=== PATIENT | male | born 1990 | race Caucasian/White ===

== ENCOUNTER 2018-12-30 21:00 | Emergency (ER) | payer OTHER ==
[~2018-12-30] VITALS: Ht 177.8 cm; Wt 63.5 kg
[2018-12-30 22:49] LABS: ABSOLUTE BASOPHILS 0.1 thou/uL (0.0-0.2); ABSOLUTE EOSINOPHILS 0.1 thou/uL (0.0-0.7); ABSOLUTE LYMPHOCYTES 2.1 thou/uL (0.8-5.3); ABSOLUTE MONOCYTES 0.8 thou/uL (0.0-1.2); ABSOLUTE NEUTROPHILS 3.1 thou/uL (1.6-8.1); HEMATOCRIT 47.6 % (42.0-52.0); HEMOGLOBIN 15.9 gm/dL (14.0-18.0); LYMPHOCYTES 34.2 %; MCH 28.4 pg (26.0-34.0); MCHC 33.5 g/dL (28.0-37.0); MCV 84.9 fL (80.0-100.0); MONOCYTES 12.4 %; MPV 8.5 fl. (7.2-11.1); NUCLEATED RBCS 0 /100WBC; PLATELET COUNT* 249 thou/uL (150-400); POLYS 50.4 %; RDW-CV 13.5 % (10.5-14.5); WBC 6.1 thou/uL (4.0-11.0)
[2018-12-30 23:00] LABS: CALCIUM 9.7 mg/dL (8.5-10.1); POTASSIUM 3.8 mmol/L (3.5-5.1)
[2018-12-30 23:07] LABS: ALBUMIN 4.3 g/dL (3.4-5.0); TOTAL BILIRUBIN 1.5 mg/dL (<0.1-1.0); TOTAL PROTEIN 7.5 g/dL (6.4-8.2)
[2018-12-31] MEDS ORDERED: BENTYL 20 MG TA20 M1 PO (00:12)
[2018-12-31] MEDS ORDERED: ZOFRAN4 MG PO (00:12)
[2018-12-31 00:23] LABS: URINE BILIRUBIN NEGATIVE (Negative); URINE BLOOD NEGATIVE (Negative); URINE CLARITY CLEAR; URINE COLOR YELLOW; URINE GLUCOSE-RANDOM NEGATIVE (Negative); URINE KETONES NEGATIVE (Negative); URINE LEUKOCYTES-REFLEX NEGATIVE (Negative); URINE NITRITE-REFLEX NEGATIVE (Negative); URINE PROTEIN NEGATIVE (Negative); URINE UROBILINOGEN 0.2 E.U./dl (0.2-1.0)
[2018-12-31 01:36] VITALS: BP 99/61
== END 2018-12-31 01:36 | disposition home or self-care (01) ==
LOC: M.ERS 21:00
PROVIDERS: Nurse Practitioner Family
DX: K52.9 Noninfective gastroenteritis and colitis, unspecified (principal); Z91.030 Bee allergy status

== ENCOUNTER → 2019-07-19 | Outpatient (CLI) | payer OTHER ==
[~2019-07-19] MED LIST: BENTYL 20 MG TA20 M1 PO; FLEXERIL PO; ULTRAM 50MG TAB50 MG PO; ZOFRAN4 MG PO
== END ==
LOC: M.ULTRA 10:08
DX: N50.3 Cyst of epididymis (principal); N43.3 Hydrocele, unspecified; R79.89 Other specified abnormal findings of blood chemistry

== ENCOUNTER 2019-07-20 19:12 | Emergency (ER) | payer OTHER ==
[~2019-07-20] VITALS: Ht 177.8 cm; Wt 61.7 kg
[~2019-07-20 19:12] MED LIST changes: -FLEXERIL PO; -ULTRAM 50MG TAB50 MG PO
[2019-07-20] MEDS ORDERED: ULTRAM 50MG TAB50 MG PO ×3 (22:37→22:38)
[2019-07-20] MEDS ORDERED: FLEXERIL PO (22:37)
[2019-07-20 22:48] VITALS: BP 107/69
== END 2019-07-20 22:49 | disposition home or self-care (01) ==
LOC: M.ERS 19:12
DX: M25.512 Pain in left shoulder (principal); R07.89 Other chest pain; F17.210 Nicotine dependence, cigarettes, uncomplicated; Z91.030 Bee allergy status